=== PATIENT | female | born 1965 | race Caucasian/White ===

== ENCOUNTER 2018-05-04 06:13 | Day surgery (SDC) | payer OTHER ==
[2018-05-03 09:50] VITALS: BMI 27.4
[~2018-05-04 06:13] MED LIST: BACITRACIN 15 GM TUBE TOPICAL OINTMENT TP ONE; BUPIVACAINE HCL/PF (5 MG/ML) 30 ML VIAL IJ ONE; ceFAZolin SODIUM 1 GM VIAL IVPB ONE
[2018-05-04] MEDS ORDERED: BUPIVACAINE HCL/PF 0.5% (5MG/ML) 10 ML VIAL ONE (07:16)
[2018-05-04] MEDS ORDERED: BACITRACIN 15 GM TUBE TOPICAL OINTMENT ONE (07:16)
--- NOTE | 2018-05-04 08:18 | HP ---
History & Physical Update - History History: No Change - Physical Physical: No Change - Assessment Assessment: No Change - Plan Plan: No Change (H&P is up-to-date, complete and accurate. Located in patient's paper chart. No new complaints or medications. Here today for elective repair of her C6/7 herniated disc resulting in LUE radiculopathy. Planned procedure is C6/7 ACDF.)
[2018-05-04] MEDS ORDERED: CEFAZOLIN 2 GM/D5W 2 GM/50 ML ML IVPB ONE (08:20)
[2018-05-04] MEDS ORDERED: MIDAZOLAM HCL 2 MG/2 ML SINGLE DOSE VIAL ONE ×2 (08:21→09:01)
[2018-05-04] MEDS ORDERED: PROPOFOL 20 ML ONE ×7 (08:23→09:19)
[2018-05-04] MEDS ORDERED: LIDOCAINE HCL/PF 2% SDV 5ML VIAL ONE ×2 (08:23→09:44)
[2018-05-04] MEDS ORDERED: SUCCINYLCHOLINE CHLORIDE 200 MG/10 ML VIAL ONE (08:23)
[2018-05-04] MEDS ORDERED: ONDANSETRON 4 MG/2 ML VIAL IVPUSH PRN ×2 (08:35→11:07)
[2018-05-04] MEDS ORDERED: METOPROLOL TARTRATE 5 MG/5 ML VIAL ONE ×2 (08:53→10:53)
[2018-05-04] MEDS ORDERED: ceFAZolin SODIUM 1 GM VIAL IVPB ONE (08:53)
[2018-05-04] MEDS ORDERED: GLYCOPYRROLATE 0.2 MG/1 ML VIAL ONE (08:56)
[2018-05-04] MEDS ORDERED: SODIUM CHLORIDE 0.9% P/F 10 ML VIAL IJ ONE ×2 (08:58→09:10)
[2018-05-04] MEDS ORDERED: ceFAZolin SODIUM 1 GM VIAL ONE ×2 (08:58→16:13)
[2018-05-04] MEDS ORDERED: ROCURONIUM BROMIDE 50 MG/5 ML VIAL ONE (08:59)
[2018-05-04] MEDS ORDERED: BACITRACIN 15 GM TUBE TOPICAL OINTMENT TP ONE (09:00)
[2018-05-04] MEDS ORDERED: BENZOIN TINCTURE SWABSTICK TP ONE (09:01)
[2018-05-04] MEDS ORDERED: BACITRACIN 50,000 UNITS VIAL TP ONE (09:27)
[2018-05-04] MEDS ORDERED: THROMBIN (BOVINE) 5,000 UNIT VIAL TP ONE (09:27)
--- NOTE | 2018-05-04 11:02 | OP ---
Operative Note - Note: Operative Date: 05/04/18 Pre-Operative Diagnosis: L C6-7 HNP with radiculopathy Operation: Dixon milan; anterior cervical discectomy with fusion, anterior interbody allograft; anterior instrumentation; microdissection Findings: C6-7 severe degenerative disc space narrowing; sensitive roots B C7 Implants: [employer] Select; 7 mm [place] lordoctic interbody implant Surgeon: Reggie Stroud (Lent co-surg) [employer] Athlete: Shlomo Andre Anesthesiologist/ENGRAVER HAND HARD METALS: Yovanny Burrows Anesthesia: General Specimens Removed: C6-7 DDD Estimated Blood Loss (mls): 10 Operative Report Dictated: Yes
[2018-05-04] MEDS ORDERED: oxyCODONE HCL 5 MG TABLET PO PRN (11:07)
--- NOTE | 2018-05-04 11:14 | OP ---
DATE OF OPERATION: 05/04/2018 PREOPERATIVE DIAGNOSIS: C6-C7 radiculopathy. POSTOPERATIVE DIAGNOSIS: C6-C7 radiculopathy. PROCEDURE: C6-C7 decompression and fusion. SURGICAL ATTENDING: Gloria Anders MD CO-SURGEON: Reggie Stroud MD ANESTHESIA: General. POSITION: Supine. CLOSURE: 3-0 Vicryl for deep layers and 4-0 Monocryl for skin. ESTIMATED BLOOD LOSS: Negligible. COMPLICATIONS: None. CONDITION: To recovery in stable condition. DESCRIPTION OF OPERATIVE PROCEDURE: The patient taken to the operating room on May 04, 2018. General anesthesia was administered by the anesthesiologist. Patient was placed supine on the operating table. The cervical region was prepped and draped in the usual sterile fashion. A spinal needle was used to confirm ideal location of the operative intervention. A left-sided approach to the C6-C7 region was undertaken. A 3-cm incision at this layer was made. Hemostasis was achieved with Bovie cautery. Sharp dissection was carried through the subcu and the platysma muscle. The esophagus and trachea were retracted more to the right side, and blunt dissection was carried down to the level of C6-C7. At this time, Dr. Deon Stroud took over and was doing the C6-C7 fusion. Please see his dictation for the full description of that portion of the case. Upon completion of the C6-[address] Stroud, the incision was closed in layers with 3-0 Vicryl in deep platysma and 4-0 Monocryl for the skin along with Steri-Strips. Sterile pressure dressing was applied. The patient awakened from anesthesia and transferred to recovery in stable condition with no complication. GLORIA ANDERS M.D. [id number]
[2018-05-04] MEDS ORDERED: ACETAMINOPHEN INJECTION 100 ML IVPB ONE (11:24)
[2018-05-04] MEDS ORDERED: hydrALAZINE HCL 20 MG/ML VIAL ONE (11:24)
--- NOTE | 2018-05-04 11:38 | PN ---
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
[2018-05-04] MEDS: hydrALAZINE HCL 20 MG/ML VIAL IVPUSH ONE ×2 (11:40→16:09)
[2018-05-04] MEDS ORDERED: HYDROmorphone *PCA* 10MG/50ML DISP.SYRIN PCA ONE (11:44)
[2018-05-04] MEDS: ACETAMINOPHEN 1000 MG/100 ML VIAL (NON FORMULARY) IVPB ONE ×2 (11:45→16:09)
--- NOTE | 2018-05-04 12:28 | SURG ---
Surgery Email Campaign Manager Note Email Campaign Manager: Shlomo Andre PA-C Date of Service: 05/04/18 Diagnosis: Left C6-7 HNP with radiculopathy Procedure: Dixon milan; C6/7 anterior cervical discectomy with fusion, anterior interbody allograft; anterior instrumentation; microdissection I was present for the entirety of the operative procedure. For further detail, please refer to operative report. Visit type - Case Type Case Type: Scheduled - New patient This patient is new to me today: Yes Date on this admission: 05/04/18
[2018-05-04] MEDS: D5-1/2NS+20 MEQ KCL - 20 MEQ/1,000 ML INFUS.BAG IV SCH (16:08)
[2018-05-04] MEDS: LACTATED RINGERS SOLUTION 1,000 ML IV SCH (16:08)
[2018-05-04] MEDS: diazePAM 5 MG TABLET PO SCH ×2 (16:09→20:06)
[2018-05-04] MEDS: HYDROmorphone *PCA* 10MG/50ML DISP.SYRIN PCA SCH (16:10)
[2018-05-04] MEDS: DOCUSATE SODIUM 100 MG CAPSULE (FP) PO SCH ×2 (16:10→22:39)
[2018-05-04] MEDS ORDERED: DEXTROSE 5%-WATER - 50 ML IVPB ONE (16:14)
[2018-05-04] MEDS: amLODIPine BESYLATE 5 MG TABLET (FP) PO SCH (16:18)
--- NOTE | 2018-05-04 16:27 | OP ---
DATE OF OPERATION: 05/04/2018 PREOPERATIVE DIAGNOSIS: Left C6-7 paracentral disk herniation with intractable left C7 radiculopathy. POSTOPERATIVE DIAGNOSIS: Left C6-7 paracentral disk herniation with intractable left C7 radiculopathy. ATTENDING SURGEON: Reggie Stroud MD CO-SURGEON: Maximo Anders MD SALES ADVISORY MANAGER: GABY Monahan ANESTHESIA: General endotracheal. ANESTHESIOLOGIST: Yovanny Burrows MD ESTIMATED BLOOD LOSS: 10 mL. PROCEDURE: 1. Preoperative placement and postoperative removal of cranial traction tongs for intraoperative traction (98151). 2. Anterior cervical diskectomy and interbody fusion at C6-7 (50443-82). 3. Microsurgical dissection with operative microscope and microsurgical technique (89356). 4. Utilization of intervertebral cortical cancellous allograft (structural allograft) (81231). 5. Anterior cervical plating system placed from C6 to C7 (61940) (22-mm [employer] Select Titanium Plate and a 14-mm variable angled screws at C6 and C7 bilaterally). FINDINGS: 1. Bridging osteophyte C6-7 with severe degenerative disk space narrowing. 2. Left C6-7 paracentral/disc herniation interproximal neural foramen. 3. Sensitive cervical nerve roots bilaterally at C6-7. INDICATION: Patient is a 53-year-old female with intractable neck pain and cervical radiculopathy. She was found to have weakness and numbness on her examination. MRI demonstrated a C6-7 disk herniation. She has now consented for anterior cervical decompression and fusion with instrumentation. The risks of procedure include but were limited to, bleeding, infection, dural tear with CSF leak, neurological injury, and risks of general anesthesia, hoarseness, swallowing difficulty, and other risks of general anesthesia. The patient understands indications for the procedure, procedure in detail, risks and benefits, and alternatives for treatment of her cervical spine condition and wishes to proceed with surgery. No guarantees were given for a favorable outcome. PROCEDURE IN DETAIL: After the patient was taken to the operating room, she was placed in the supine position. After general anesthesia was induced and appropriate padding was placed, the cranial retraction tongs were applied with bacitracin ointment. No traction weight was placed until baseline SSEP, EMG, and MEP signals were monitored. Bilateral recurrent laryngeal neuromonitoring was also instituted. At this point, the shoulders were taped on the sides and a spinal needle was placed for localization. After that, patient was sterilely prepped and draped, the approach was dictated by Dr. Anders under a separate dictation. At this point, the anterior prevertebral fascia was skeletonized, and with bridging osteophytes at C6-7, it was difficult to insert a spinal needle into the disk space. Allowed a more lateral approach trajectory of the needle was needed in ordered to access the disk space. After position was verified at C6-7, Leksell rongeur was used to remove the bridging osteophyte, and a high-speed pneumatic drill was used to create a space at C6-7 disk space. A Sanchez elevator was used to distract the C6-7 interbody space. The microscope was brought in for both illumination and magnification. Microsurgical technique was utilized. High-speed pneumatic drill was used to perform burring down the endplate at C6 and C7 to create a path for interbody implants to be inserted later on. Posterior longitudinal ligament was dissected free with angled curette and resected with Kerrison rongeur. Epidural fibrosis was noted bilaterally. Bilateral foraminotomy was carried out with angled curette and Kerrison rongeur. A more aggressive left side decompression was carried out because the patient was symptomatic only on the left side. After decompression was completed, neural foramen was palpated with the angled curette and was felt to be open bilaterally. Hemostasis was obtained with bipolar electrocautery and thrombin cell powder and Gelfoam. Disk space was sized to be approximately 16 mm in AP diameter, and height was 7 mm. A 7-mm lordotic implant from [employer] was inserted and countersunk by about 2 mm. A 22-mm Trinica Select Titanium Plate was secured with fixation pins, and screw holes were first drilled with a handheld drill and drill guide. A 14-mm Variable Angled screws were used at C6 and C7 bilaterally. Wound was irrigated with antibiotic irrigation. SSEP, EMG, and MEP signals remained stable throughout. The esophagus and carotid sheath were inspected, and there was no injury to them. The closure was dictated by Dr. Anders under a separate dictation. The patient received 1 dose of 1 g of Ancef and 10 mg of Decadron prior to the incision. She also received 10 mg of dexamethasone. All needles and lap counts were correct. OR timeout procedure was followed. The patient was found to have hypertension immediately after induction and is suspected to have underlying hypertension. She will be treated accordingly postoperatively. REGGIE STROUD M.D. [id number] MTDD
[2018-05-04] MEDS: CEFAZOLIN 1 GM in DEXTROSE 5%-WATER - 50 ML IVPB SCH (18:00)
[2018-05-05] MEDS: D5-1/2NS+20 MEQ KCL - 20 MEQ/1,000 ML INFUS.BAG IV SCH ×2 (00:15→12:30)
[2018-05-05] MEDS: CEFAZOLIN 1 GM in DEXTROSE 5%-WATER - 50 ML IVPB SCH (01:11)
[2018-05-05] MEDS ORDERED: ceFAZolin SODIUM 1 GM VIAL ONE (01:15)
[2018-05-05] MEDS ORDERED: DEXTROSE 5%-WATER - 50 ML IVPB ONE (01:16)
[2018-05-05] MEDS: diazePAM 5 MG TABLET PO SCH ×2 (02:56→12:30)
[2018-05-05] MEDS ORDERED: PT OWN MED DRAWER 7, Y5N ONE (05:45)
[2018-05-05] MEDS: DOCUSATE SODIUM 100 MG CAPSULE (FP) PO SCH (05:46)
--- NOTE | 2018-05-05 07:52 | PN ---
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
--- NOTE | 2018-05-05 09:52 | PN ---
Progress Note (short form) - Note Progress Note: Pt seen and examined. She is quite comfortable, no pain. She states all her left upper extremity numbness is gone. She has a little pain around the left elbow, this is not new. No drainage. Dressing CDI. B/L UE are NVI and overall she looks quite good. Imp Doing great on POD #1 Rec F/U with Dr Stroud in 1 week
[2018-05-05] MEDS: amLODIPine BESYLATE 5 MG TABLET (FP) PO SCH (10:04)
[2018-05-05] MEDS: LACTATED RINGERS SOLUTION 1,000 ML IV SCH (10:04)
[2018-05-05 10:19] VITALS: BP 140/70; PULSE 88; TEMP 97.6
--- NOTE | 2018-05-05 12:26 | PN ---
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
[2018-05-05] MEDS: HYDROmorphone *PCA* 10MG/50ML DISP.SYRIN PCA SCH (12:30)
--- NOTE | 2018-05-06 18:38 | PATH ---
Surgical Pathology Report Patient Name: ANGELIA SANCHEZ [facility]. Rec. #: [id number] /Age/Gender: 1965 (Age: 53) / F Account: [id number] Location: AMBULATORY SURG Taken: 05/04/2018 Received: 05/04/2018 Reported: 05/06/2018 Physicians: Rima Kaiser M.D. Specimen(s) Received DISC, C6-C7 Clinical History C6-C7 herniated disc Final Diagnosis DISC, C6-C7, ANTERIOR CERVICAL DECOMPRESSION AND INTERBODY FUSION: BENIGN INTERVERTEBRAL DISC TISSUE, BONE, FIBROADIPOSE TISSUE, AND SKELETAL MUSCLE. Electronically Signed Evangelina Gong M.D. Gross Description Received in formalin labeled "C6-C7," is a 1.7 x 1.3 x 0.3 cm aggregate of rosado fragments of fibrocartilaginous tissue. The specimen is submitted in toto in one cassette. 05/05/2018 saudi05/05/2018
== END 2018-05-05 12:56 | disposition home or self-care (01) ==
LOC: JASUSAT 06:13 → EDSTATUS 08:00 → J8W 15:22 → JASUSAT 05-05 12:56
PROVIDERS: ATTEND Orthopaedic Surgery
PROC: 0RG10K0 Fusion of Cervical Vertebral Joint with Nonautologous Tissue Substitute, Anterior Approach, Anterior Column, Open Approach (ICD-10-PCS; 2018-05-04)
PROC: 0RT30ZZ Resection of Cervical Vertebral Disc, Open Approach (ICD-10-PCS; principal; 2018-05-04 08:00)
DX: M50.123 Cervical disc disorder at C6-C7 level with radiculopathy (principal); R53.1 Weakness
CPT/HCPCS: 72050-TC-FY; 86850; 86900; 86901; 88304-TC; 94760; 97116-GP; 97161-GP; J0131